=== PATIENT | male | born 1970 | race Caucasian/White ===

== ENCOUNTER 2024-04-26 10:50 | Inpatient (IN) | payer OTHER ==
[2024-04-26 09:42] VITALS: BMI 29.4
[2024-04-30] MEDS ORDERED: HEPARIN NA (PORCINE) 5,000 UNITS/ML 1ML VIAL ONE ×2 (06:26→07:19)
[2024-04-30] MEDS ORDERED: GABAPENTIN 300 MG CAPSULE ONE (06:26)
[2024-04-30] MEDS: GABAPENTIN 300 MG CAPSULE PO ONE (06:48)
[2024-04-30] MEDS: HEPARIN NA (PORCINE) 5,000 UNITS/ML 1ML VIAL SQ ONE (06:53)
[2024-04-30] MEDS: SCOPOLAMINE HYDROBROMIDE 1 PATCH PATCH.TD72 TD ONE (06:53)
[2024-04-30] MEDS ORDERED: FLU VACCINE (FLULAVAL) PF 45 MCG/0.5 ML SYRINGE 2024-2025 IM ONE (07:07)
[2024-04-30] MEDS ORDERED: INDOCYANINE GREEN 25 MG/10 ML VIAL IVPUSH ONE ×3 (07:18→12:06)
[2024-04-30] MEDS ORDERED: BUPIVACAINE HCL/PF 0.25% (2.5MG/ML) 10 ML VIAL ONE ×3 (07:18→09:57)
[2024-04-30] MEDS ORDERED: cefOXitin SODIUM 2 GM VIAL (RESTRICTED TO ID) IVPB ONE (07:19)
[2024-04-30] MEDS ORDERED: ROCURONIUM BROMIDE 50 MG/5 ML SYRINGE ONE ×3 (07:24→12:16)
[2024-04-30] MEDS ORDERED: MIDAZOLAM HCL 2 MG/2 ML SINGLE DOSE VIAL ONE (07:24)
[2024-04-30] MEDS ORDERED: PROPOFOL 20 ML ONE ×2 (07:24→13:49)
[2024-04-30] MEDS: cefOXitin SODIUM 2 GM VIAL (RESTRICTED TO ID) IVPB ONE ×3 (09:10→23:31)
[2024-04-30] MEDS ORDERED: HYDROmorphone HCl 2 MG/ML VIAL ONE (09:36)
[2024-04-30] MEDS: BUPIVACAINE HCL/PF 0.25% (2.5MG/ML) 10 ML VIAL IJ ONE ×2 (09:52)
[2024-04-30] MEDS ORDERED: LACTATED RINGERS SOLUTION 1,000 ML IV SCH (13:00)
[2024-04-30] MEDS: INDOCYANINE GREEN 25 MG/10 ML VIAL IVPUSH ONE (14:00)
[2024-04-30] MEDS ORDERED: SUGAMMADEX SODIUM 200 MG/2 ML VIAL ONE (14:03)
[2024-04-30] MEDS: ACETAMINOPHEN INJECTION 100 ML ONE (16:00)
[2024-04-30] MEDS: ACETAMINOPHEN 1000 MG/100 ML BAG IVPB SCH (16:00)
[2024-04-30] MEDS: LABETALOL HCL 20 MG/4 ML VIAL IVPUSH ONE (16:39)
[2024-04-30 18:30] LABS: ARTERIAL BLOOD GAS BASE EXCESS -1.2 mmol/L (-2-2); ARTERIAL BLOOD GAS PO2 110.2 mmHg (80-100); ARTERIAL BLOOD GAS pH 7.396 (7.350-7.450)
[2024-04-30] MEDS: hydrALAZINE HCL 20 MG/ML VIAL IVPUSH ONE (18:58)
[2024-04-30] MEDS: FLU VACCINE (FLUARIX) PF 45 MCG/0.5 ML SYRINGE 2024-2025 IM ONE (23:20)
[2024-04-30] MEDS: ACETAMINOPHEN 1000 MG/100 ML BAG IVPB ONE (23:32)
[2024-04-30] MEDS: CEFOXITIN SODIUM/DEXTROSE,ISO 2 GM/50 ML BAG IVPB SCH (23:49)
[2024-05-01] MEDS ORDERED: CEFOXITIN SODIUM 2 GM in DEXTROSE 5%-WATER 100 ML IVPB SCH (03:00)
[2024-05-01] MEDS: oxyCODONE HCL 5 MG TABLET PO PRN ×2 (08:11→18:58)
[2024-05-01 09:32] LABS: HEMATOCRIT 38.7 % (40.1-51.0); HEMOGLOBIN 13.1 g/dL (13.7-17.5); MCHC 33.9 g/dl (32.3-36.5); MEAN CELL VOLUME 88.8 fl (79.0-92.2); MEAN PLT VOLUME 11.4 fl (9.4-12.4); PLATELET COUNT 170 x10^3/uL (163-337); RDW 12.3 % (12.2-16.1)
[2024-05-01 09:45] LABS: POTASSIUM 3.6 mmol/L (3.5-5.1)
[2024-05-01] MEDS: ENOXAPARIN NA (PORCINE) 40 MG/0.4 ML DISP.SYRIN SQ SCH (09:48)
[2024-05-01 09:51] LABS: MAGNESIUM 1.9 mg/dL (1.8-2.4)
[2024-05-01 09:54] LABS: CREATININE 1.3 mg/dL (0.55-1.3)
[2024-05-01 09:55] LABS: BLOOD UREA NITROGEN 15.2 mg/dL (7-18)
[2024-05-01 09:58] LABS: PHOSPHOROUS 2.5 mg/dL (2.5-4.9)
[2024-05-01] MEDS: CEFOXITIN SODIUM 2 GM in DEXTROSE 5%-WATER 100 ML IVPB SCH (10:43)
[2024-05-02 08:32] LABS: HEMATOCRIT 38.2 % (40.1-51.0); HEMOGLOBIN 12.6 g/dL (13.7-17.5); MEAN CELL VOLUME 88.8 fl (79.0-92.2); MEAN PLT VOLUME 11.1 fl (9.4-12.4); PLATELET COUNT 142 x10^3/uL (163-337); RDW 12.5 % (12.2-16.1)
[2024-05-02 08:55] LABS: POTASSIUM 3.5 mmol/L (3.5-5.1)
[2024-05-02 09:01] LABS: BLOOD UREA NITROGEN 15.9 mg/dL (7-18)
[2024-05-02 09:03] LABS: CALCIUM 8.9 mg/dL (8.5-10.1)
[2024-05-02 09:04] LABS: CREATININE 1.5 mg/dL (0.55-1.3); PHOSPHOROUS 3.3 mg/dL (2.5-4.9)
[2024-05-02] MEDS: POLYETHYLENE GLYCOL (HEALTHYLAX) 3350 17 GM PACKET PO SCH (10:36)
[2024-05-02] MEDS: POTASSIUM CHLORIDE TABS 20 MEQ TABLET.ER (FP) PO ONE (12:12)
[2024-05-03 07:45] VITALS: RESP 18
[2024-05-03 09:19] LABS: HEMATOCRIT 41.9 % (40.1-51.0); HEMOGLOBIN 13.5 g/dL (13.7-17.5); MCHC 32.2 g/dl (32.3-36.5); MEAN CELL VOLUME 90.5 fl (79.0-92.2); MEAN PLT VOLUME 10.9 fl (9.4-12.4); PLATELET COUNT 159 x10^3/uL (163-337); RDW 12.5 % (12.2-16.1)
[2024-05-03 09:50] LABS: POTASSIUM 3.7 mmol/L (3.5-5.1)
[2024-05-03 10:00] LABS: BLOOD UREA NITROGEN 19.2 mg/dL (7-18)
[2024-05-03 10:03] LABS: MAGNESIUM 2.3 mg/dL (1.8-2.4); PHOSPHOROUS 3.5 mg/dL (2.5-4.9)
[2024-05-03 13:26] VITALS: BP 122/86; PULSE 84; TEMP 97.7
== END 2024-05-03 13:07 | disposition home or self-care (01) | DRG 221 ==
LOC: J2C 04-30 05:38 → J8W 04-30 21:09
PROVIDERS: ATTEND Nurse Practitioner Acute Care
PROC: 0T778DZ Dilation of Left Ureter with Intraluminal Device, Via Natural or Artificial Opening Endoscopic (ICD-10-PCS; 2024-04-30)
PROC: 0DBN4ZZ Excision of Sigmoid Colon, Percutaneous Endoscopic Approach (ICD-10-PCS; principal; 2024-04-30 07:45)
PROC: 8E0W8CZ Robotic Assisted Procedure of Trunk Region, Via Natural or Artificial Opening Endoscopic (ICD-10-PCS; 2024-04-30 07:45)
DX: K57.32 Diverticulitis of large intestine without perforation or abscess without bleeding (principal)
CPT/HCPCS: 36415; 36600; 80048; 82803; 83735; 84100; 85027; 86140; 86850; 86900; 86901; 88307-TC; 90656; 94760; G0008; J0131; J1644